=== PATIENT | male | born 1950 | race Caucasian/White ===

== ENCOUNTER → 2021-02-15 08:53 | Outpatient (BNVA) | payer MEDICARE, SELFPAY | PROVIDERS: PCP Internal Medicine; Visit Provider Urology | DX: N32.0 Bladder-neck obstruction (principal); R33.9 Retention of urine, unspecified; R39.12 Poor urinary stream | CPT/HCPCS: 51798; 99212 ==

== ENCOUNTER 2022-01-30 12:38 | Outpatient (REF) | payer MEDICARE, SELFPAY ==
[2022-01-30 14:55] LABS: Prostate Specific Antigen 1.75 ng/mL (<0.05-4.0)
== END 2022-01-30 12:39 | disposition home or self-care (01) ==
LOC: HO.LAB 12:38
PROVIDERS: PCP Internal Medicine; Visit Provider Urology
DX: Z12.5 Encounter for screening for malignant neoplasm of prostate (principal); N13.8 Other obstructive and reflux uropathy; N40.1 Benign prostatic hyperplasia with lower urinary tract symptoms; R39.12 Poor urinary stream
CPT/HCPCS: 36415; 84153

== ENCOUNTER → 2022-02-05 13:14 | Outpatient (BNVA) | payer MEDICARE, SELFPAY | PROVIDERS: PCP Internal Medicine; Visit Provider Urology | DX: N40.1 Benign prostatic hyperplasia with lower urinary tract symptoms (principal); N13.8 Other obstructive and reflux uropathy; R39.12 Poor urinary stream; R33.8 Other retention of urine | CPT/HCPCS: 51798; 99212 ==

== ENCOUNTER → 2023-02-11 08:31 | Outpatient (BNVA) | payer MEDICARE, SELFPAY | PROVIDERS: Visit Provider Urology | DX: R33.9 Retention of urine, unspecified (principal); R39.12 Poor urinary stream; N32.0 Bladder-neck obstruction | CPT/HCPCS: 51798; 99212 ==

== ENCOUNTER 2024-02-12 08:20 | Outpatient (AMB) | payer MEDICARE, SELFPAY ==
--- NOTE | 2024-02-12 08:27 | MHC.OFFVIS ---
Intake Visit Reasons: 1Y PVR Intake Note: Patient is present for Follow Up Urology Med: none Antibiotic Allergy: None Blood Thinner: Asprin PVR: 30ml's Temperature Control Inspector Required: No Accompanied by: Self / Same As Patient Allergies No Known Allergies Allergy (Verified 02/11/23 08:40) HPI Comments Details: Jaziel CAMACHO is a very pleasant male. He is a patient of Dr Sanches. He is seen in the office today for the following urologic conditions. - lower urinary tract symptoms Low PVR maintained No longer on medications for prostate Has maintain weight loss - on Ozempic with diabetes Does have urinary urgency. 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 Current treatment includes medication nothing Prior treatments include medication, alpha blockers, finasteride Prostate Symptom Score 8/18 Moderate (9-19), Bother 3. Symptoms include / , incomplete emptying, weak stream, nocturia (>2), and are progressing 09/05 , incomplete emptying, weak stream, and are stable 10/07 , incomplete emptying, and are stable. Results from testing include cystoscopy Enlarged lateral lobes 09/05 Prior Prostate Score moderate. PSA 03/05 2.0, 02/06 1.8, 12/08 2.3 Prostate volume 30-50gm. Testing at next visit will include bladder scan. [facility] Medical History Hyperlipidemia Diabetes mellitus, type II Incomplete emptying of bladder Weak urinary stream Bladder outlet obstruction Surgical History History of surgery Review of Systems Const Denies chills and Denies fever(s) Card Reports no additional complaints and Denies syncope Resp Denies cough GI Denies abdominal pain and Denies heartburn Reports as per HPI and Denies change in libido Neuro Denies syncope Psych Denies change in libido Endo Denies change in libido Physical Exam Const General: cooperative, healthy appearing, comfortable and no acute distress Orientation/consciousness: patient oriented x3 HEENT Face and sinus: Yes normal facial exam Mouth: moist mucous membranes Neck Neck: Yes normal visual inspection, Yes full ROM and Yes trachea midline Chest Chest palpation & inspection: normal inspection of the chest Resp Effort & Inspection: normal respiratory effort, able to speak in complete sentences and no respiratory distress GI Inspection: Yes normal to inspection Back/Spine/Pelvis Cervical Spine: normal cervical lordosis Thoracic/Lumbar Spine: thoracic and lumbar spine normal to inspection Skin General skin exam: no rashes or lesions noted Neuro General: patient oriented x3, gait normal, tone normal and moves all extremities Extrem General: Yes normal to inspection and Yes capillary refill normal Results AMB Urinalysis, Automated UA Leukoctes 0 Leena/uL Last Edit by AUGUSTO Calix on 02/12/24 08:44 UA Nitrite Negative Last Edit by AUGUSTO Calix on 02/12/24 08:44 UA Urobilinogen 0.2 mg/dL Last Edit by AUGUSTO Calix on 02/12/24 08:44 UA Protein 0 mg/dL Last Edit by AUGUSTO Calix on 02/12/24 08:44 UA pH 6.0 Last Edit by AUGUSTO Calix on 02/12/24 08:44 UA Blood 0 Candelario/uL Last Edit by AUGUSTO Calix on 02/12/24 08:44 UA Specific [place] 1.015 Last Edit by AUGUSTO Calix on 02/12/24 08:44 UA Ketone Negative Last Edit by AUGUSTO Calix on 02/12/24 08:44 UA Bilirubin 0 mg/dL Last Edit by AUGUSTO Calix on 02/12/24 08:44 UA Glucose 0 mg/dL Last Edit by AUGUSTO Calix on 02/12/24 08:44 Assessment & Plan Assessment & Plan (1) Bladder instability: Code(s): N32.89 - Other specified disorders of bladder Category: Medical (2) Bladder outlet obstruction: Code(s): N32.0 - Bladder-neck obstruction Category: Medical Plan Trial tadalafil Orders: Orders AMB Urinalysis Automated Today Z13.9 - Encounter for screening, unspecified AMB Post Void Residual by ultrasound Today N32.0 - Bladder-neck obstruction Medications: New tadalafil 5 mg PO DAILY 90 days 90 tabs 0RF sexual activity E11.69 - Type 2 diabetes mellitus with other specified complication, N32.89 - Other specified disorders of bladder, N52.01 - Erectile dysfunction due to arterial insufficiency, N52.1 - Erectile dysfunction due to diseases classified elsewhere, N52.9 - Male erectile dysfunction, unspecified Patient Instructions: Imaging studies, laboratory and physical exam results were discussed and reviewed in detail. No major barriers to patient understanding were identified. An opportunity to ask questions regarding the treatment plan was provided. All questions were answered. The patient expressed understanding and agreement with the above treatment plan. The patient is aware they should contact our office by phone for worsening of their current condition or the appearance of new urologic symptoms. Compliance is encouraged with any medications and followup testing that is ordered. It is a privilege to participate in the urologic care of your patient. If you have any questions or concerns regarding treatment for the above conditions, or other urologic issues, please do not hesitate to contact me. The office telephone contact is [phone]. This note is constructed using voice recognition software. While every effort has been made to ensure accuracy licensed dispensing optician errors may have been included. Yours sincerely, Dr Balaji Lema MD, [facility] - Urology Providers of Expert, Compassionate Care for the Genitourinary System Coding Level of Care Code Est Pt Level 4 (89302) Diagnoses Bladder instability N32.89 Bladder outlet obstruction N32.0
== END 2024-02-12 08:52 | disposition home or self-care (01) ==
LOC: HO.HUSH 08:20
PROVIDERS: PCP Internal Medicine; Visit Provider Urology
DX: N32.89 Other specified disorders of bladder (principal); N32.0 Bladder-neck obstruction; Z13.9 Encounter for screening, unspecified
CPT/HCPCS: 99214

== ENCOUNTER → 2024-02-12 08:20 | Outpatient (BNVA) | payer MEDICARE, SELFPAY | PROVIDERS: PCP Internal Medicine; Visit Provider Urology | DX: N32.89 Other specified disorders of bladder (principal); N32.0 Bladder-neck obstruction | CPT/HCPCS: 81003; 99212 ==